=== PATIENT | female | born 1970 | race Caucasian/White ===

== ENCOUNTER 2021-09-09 09:48 | Outpatient (CLI) | payer OTHER | END 2021-09-09 09:49 | disposition home or self-care (01) | LOC: TBSIIMAG 09:48 | PROVIDERS: ATTEND Neurological Surgery | DX: S32.051A Stable burst fracture of fifth lumbar vertebra, initial encounter for closed fracture (principal); M47.816 Spondylosis without myelopathy or radiculopathy, lumbar region; M47.817 Spondylosis without myelopathy or radiculopathy, lumbosacral region; M43.8X6 Other specified deforming dorsopathies, lumbar region | CPT/HCPCS: 72100 ==